=== PATIENT | female | born 1940 | race Two or more races ===

== ENCOUNTER 2017-08-15 17:51 | Inpatient (IN) | payer OTHER, MEDICAID ==
[~2017-08-15] VITALS: Ht 162.6 cm; Wt 98.9 kg
--- NOTE | 2017-08-15 18:10 | NUR ---
BB DAUGHTER FOR PSYCH EVAL; AGITATION, COMBATIVE, STRIKING OUT STAFF. NOTED CALM AND DIRECTABLE. VSS. SEEN BY PA FOR EVAL. SAFETY AND COMFORT MEASURES PROVIDED. WILL MONITOR.
--- NOTE | 2017-08-15 18:40 | NUR ---
RONDA MONSALVE AT FOR EVAL.
[2017-08-15 18:50] LABS: BASOPHILS % (AUTO) 0.2 % (0.0-2.0); EOSINOPHILS # (AUTO) 0.3 /CMM (0.0-0.7); EOSINOPHILS % (AUTO) 3.5 % (0.0-6.0); HEMATOCRIT 39 % (33-45); HEMOGLOBIN 13.4 g/dL (11.5-14.8); LYMPHOCYTES # (AUTO) 2.8 /CMM (0.8-4.8); LYMPHOCYTES % (AUTO) 29.4 % (20.0-44.0); MEAN CORPUSCULAR HEMOGLOBIN 31 PG (26.0-33.0); MEAN CORPUSCULAR HGB CONC 34 g/dl (31.0-36.0); MEAN CORPUSCULAR VOLUME 92 fL (82-100); MONOCYTES # (AUTO) 0.5 /CMM (0.1-1.30); MONOCYTES % (AUTO) 5.1 % (2.0-12.0); NEUTROPHILS % (AUTO) 61.8 % (43.0-81.0); PLATELET COUNT (AUTO) 338 /CMM (150-450); RED BLOOD CELL COUNT(AUTO) 4.27 MIL/uL (4.0-5.2); WHITE BLOOD COUNT (AUTO) 9.6 K/uL (4.3-11.0)
[2017-08-15 19:04] LABS: CALCIUM, SERUM 9.5 mg/dL (8.5-10.1); CARBON DIOXIDE 29 mmol/L (21-32); CHLORIDE 102 mmol/L (98-107); CREATININE 0.8 mg/dL (0.6-1.3); GLUCOSE 107 mg/dL (74-106); POTASSIUM 4.6 mmol/L (3.5-5.1); SODIUM SERUM 137 mmol/L (136-145); UREA NITROGEN, BLOOD 23 mg/dL (7-18)
[2017-08-15 19:19] LABS: ALANINE AMINOTRANSFERASE 20 U/L (12-78); ALBUMIN 2.9 g/dL (3.4-5.0); ALCOHOL, BLOOD < 3 mg/dL (0-0); ALKALINE PHOSPHATASE 115 U/L (46-116); ASPARTATE AMINOTRANSFERASE 21 U/L (15-37); BILIRUBIN,DIRECT 0.1 mg/dL (0.0-0.2); BILIRUBIN,TOTAL 0.3 mg/dL (0.2-1.0); TOTAL PROTEIN, SERUM 6.9 g/dL (6.4-8.2)
[2017-08-15 19:22] LABS: SALICYLATE 0.8 mg/dL (2.8-20.0)
[2017-08-15 19:23] LABS: ACETAMINOPHEN 0 ug/ml (10-30)
[2017-08-15 19:52] LABS: APPEARANCE,URINE Clear (CLEAR); BILIRUBIN,URINE Negative (NEGATIVE); BLOOD, URINE Negative Ery/uL (NEGATIVE); COLOR,URINE Yellow (YELLOW); KETONES,URINE Trace (NEGATIVE); LEUKOCYTE ESTERASE ,URINE Small (NEGATIVE); NITRITE, URINE Positive (NEGATIVE); PROTEIN,URINE Negative (NEGATIVE); UGLUCOSE Negative (NEGATIVE); UROBILINOGEN,URINE 0.2 EU/dL (0.2)
[2017-08-15 20:02] LABS: RBC,URINE 0-2 /HPF (0-2)
[2017-08-15 20:03] LABS: BACTERIA,URINE Moderate /HPF (None Seen); SQUAMOUS EPITHELIAL CELL,UR Moderate /HPF (None Seen)
[2017-08-15] MEDS ORDERED: CEFTRIAXONE 1 G VIAL IM STA (20:06)
[2017-08-15] MEDS ORDERED: CEFTRIAXONE 1 G VIAL ONE (20:23)
[2017-08-15] MEDS ORDERED: LIDOCAINE /MPF 1% VIAL 5 ML VIAL ONE (20:24)
--- NOTE | 2017-08-15 21:00 | NUR ---
ADMITTED A 76 Y/O FEMALE FROM [facility], ON 5150 HOLD GRAVELY DISABLE AND DANGER TO OTHERS. BASED ON HOLD, PATIENT IS COMBATIVE, AGGRESSIVE TOWARD CAREGIVER, STRIKING OUT STAFF AT THE FACILITY AND BITE HERSELF. PATIENT HAS ADMITTING DX OF PSYCHOSIS AND MEDICAL DX. OF DEMENTIA, HYPERTENSION, OSTEOARTHRITIS, HYPOTHYROIDISM AND CHRONIC KIDNEY DISEASE. UPON FACE TO FACE EVALUATION, PATIENT APPEARED ALERT AND ORIENTED X 1, CONFUSED, DISORGANIZED AND GUARDED. AFTER EXPLANATION AND REDIRECTION, PATIENT CALMED DOWN AND BECAME COOPERATIVE,. PATIENT UNABLE TO SIGN PAPER WORKS, FULL CODE AND ALLERGY TO LACTASE, MILK, SITAGLIPTIN AND TETRACYCLINE. PATIENT HAS NO SOB, NO ACUTE DISTRESS, BREATHING EVEN AND UNLABORED, NO S/S OF PAIN AND DISCOMFORT. HEAD TO TOES ASSESSMENT DONE. MULTIPLE BRUISES NOTED. PICTURE TAKEN. ALL BELONGINGS INSPECTED FOR CONTRABAND CHECKING. NOTIFIED DR. ESQUIVEL AND THANIA NOLEN TO RECONCILE THE MEDICATION. MARCELLUS DAUGHTER NOTIFIED OF THE ADMISSION. KEPT CLEAN, DRY AND COMFORTABLE, WILL CONTINUE TO MONITOR [id number] FOR SAFETY
[2017-08-15] MEDS ORDERED: MAGNESIUM HYDROXIDE 30 ML UDC PO PRN (21:30)
[2017-08-15] MEDS ORDERED: ACETAMINOPHEN 325 MG TABLET PO PRN (21:30)
[2017-08-15] MEDS ORDERED: MAG HYDROX/AL HYDROX/SIMETH 30 ML UDC PO PRN (21:30)
[2017-08-15] MEDS ORDERED: SENN8.8S11 PO (22:59)
[2017-08-15] MEDS ORDERED: ATEN50TA PO (22:59)
[2017-08-15] MEDS ORDERED: PIOG45TA PO (22:59)
[2017-08-15] MEDS ORDERED: DOCU-170 PO (22:59)
[2017-08-15] MEDS ORDERED: DICL100G3 TP (22:59)
[2017-08-15] MEDS ORDERED: QUET50TA PO (22:59)
[2017-08-15] MEDS ORDERED: GLIP10TA11 PO (22:59)
[2017-08-15] MEDS ORDERED: QUET25TA PO (22:59)
[2017-08-15] MEDS ORDERED: MULT1TAB73 PO (22:59)
[2017-08-15] MEDS ORDERED: OXCA300T4 PO (22:59)
[2017-08-15] MEDS ORDERED: CALC-838 PO (22:59)
[2017-08-15] MEDS ORDERED: LEVO50TA8 PO (22:59)
[2017-08-15] MEDS ORDERED: LEVO25TA9 PO (22:59)
[2017-08-15] MEDS ORDERED: CLOP75TA2 PO (22:59)
[2017-08-15] MEDS ORDERED: QUET100T PO (22:59)
[2017-08-15] MEDS ORDERED: LEVO200T8 PO (22:59)
[2017-08-15 23:23] VITALS: BP 151/76
[2017-08-16] MEDS ORDERED: DEXTROSE 50%-WATER 50 ML DISP.SYRIN IV PRN
[2017-08-16] MEDS ORDERED: Medication Not On Formulary EA (Pioglitazone Hcl (Actos) 45 MG) PO SCH (06:00)
[2017-08-16 07:49] LABS: CREATININE 0.6 mg/dL (0.6-1.3)
[2017-08-16 07:57] LABS: CHOLESTEROL 131 mg/dL (<200); HDL CHOLESTEROL 39 mg/dL (40-60); LDL 67 mg/dL (0-99); TRIGLYCERIDES 143 mg/dL (30-150)
[2017-08-16 08:00] VITALS: BP 133/66
--- NOTE | 2017-08-16 09:16 | NUR ---
[id number]: BLOOD SUGAR IS 226 MG/DL AND GAVE NO INSULIN COVERAGE BECAUSE PT REFUSED
[2017-08-16] MEDS: BLOOD SUGAR DIAGNOSTIC 1 EACH STRIP IN SCH ×4 (09:22→22:48)
[2017-08-16] MEDS ORDERED: LINAGLIPTIN 5 MG TABLET PO SCH (09:30)
[2017-08-16] MEDS: SENNOSIDES 8.6 MG TABLET PO PRN (10:37)
[2017-08-16] MEDS: DOCUSATE SODIUM 100 MG CAPSULE PO PRN (10:37)
[2017-08-16] MEDS: CLOPIDOGREL BISULFATE 75 MG TABLET PO SCH (10:37)
[2017-08-16] MEDS: MULTIVITAMINS,THERAGRAN 1 UDTAB TABLET PO SCH (10:37)
--- NOTE | 2017-08-16 10:37 | NUR ---
[id number]: GAVE SENOKOT 8.6 MG DUE TO CONSTIPATION AND WILL CONTINUE TO MONITOR FOR EFFECTIVENESS OF MEDICATION
--- NOTE | 2017-08-16 10:37 | NUR ---
[id number]-DQ-[id number]: GAVE COLACE 100MG PO DUE TO CONSTIPATION UPON PT REQUEST AND WILL CONTINUE TO MONITOR FOR EFFECTIVENESS OF MEDICATION
[2017-08-16] MEDS: CALCIUM CARB 600MG /VIT D 1 EACH TABLET PO SCH ×2 (10:40→16:46)
[2017-08-16] MEDS: ATENOLOL 50 MG TABLET PO SCH (10:40)
[2017-08-16] MEDS: LEVOTHYROXINE SODIUM 25 MCG TABLET PO SCH (11:43)
[2017-08-16] MEDS: LEVOTHYROXINE SODIUM 50 MCG TABLET PO SCH (11:43)
[2017-08-16] MEDS: LEVOTHYROXINE SODIUM 100 MCG TABLET PO SCH (11:43)
[2017-08-16] MEDS: INSULIN REGULAR, HUMAN 100 UNIT/ML 3 ML VIAL SQ PRN ×4 (12:29→21:57)
--- NOTE | 2017-08-16 12:32 | NUR ---
MBC-BH-ATPNM: BLOOD SUGAR IS 243 MG/DL AND GAVE 4 UNITS OF REGULAR INSULIN
--- NOTE | 2017-08-16 12:32 | NUR ---
[id number]-[id number]: BLOOD SUGAR IS 243 MG/DL AND GAVE 4 UNITS OF REGULAR INSULIN Addendum: 08/16/17 at 1344 by PARDEEP WRIGHT RN DOUBLE ENTRY
[2017-08-16] MEDS: glipiZIDE 10 MG TABLET PO SCH ×2 (12:35→16:46)
[2017-08-16] MEDS: DIVALPROEX SODIUM 125 MG CAP.SPRINK PO SCH ×2 (13:17→16:46)
[2017-08-16] MEDS: BENZTROPINE MESYLATE (1 MG) 1 MG TABLET PO SCH ×2 (13:17→16:46)
[2017-08-16] MEDS: risperiDONE-M 0.5 MG TAB.RAPDIS PO SCH ×2 (13:18→16:49)
--- NOTE | 2017-08-16 15:30 | NUR ---
[id number]: NOTIFIED VP CARDIOVASCULAR HÉCTOR CAZARES ABOUT LAB RESULTS ON 08/15/17: URINE WBC= 3-5. NO NEW ORDERS GIVEN AT THIS TIME
[2017-08-16 15:39] VITALS: BP 145/62
--- NOTE | 2017-08-16 16:32 | NUR ---
Initial Discharge Plan According to facesheet, patient lives at [address] [place] [address] / [phone]. hot stick worker will contact pt's daughters Lilliana Arvizus [phone] and Dariana Babcock [phone] / [phone]. SW will also contact the [facility] so that they may assist in arranging placement for patient. SW will follow up with MD and will help to arrange a safe and proper discharge.
--- NOTE | 2017-08-16 16:51 | NUR ---
[id number]: BLOOD SUGAR IS 201 MG/DL AND GAVE 4 UNITS OF REGULAR INSULIN
[2017-08-16 20:37] VITALS: BP 112/53
[2017-08-17 08:00] VITALS: BP 140/69
[2017-08-17] MEDS: BLOOD SUGAR DIAGNOSTIC 1 EACH STRIP IN SCH ×4 (08:00→22:21)
--- NOTE | 2017-08-17 08:00 | NUR ---
PATIENT BLOOD SUGAR WAS 94MG/DL,NO COVERAGE GIVEN.
[2017-08-17] MEDS: LEVOTHYROXINE SODIUM 100 MCG TABLET PO SCH (08:38)
[2017-08-17] MEDS: LEVOTHYROXINE SODIUM 50 MCG TABLET PO SCH (08:39)
[2017-08-17] MEDS: CALCIUM CARB 600MG /VIT D 1 EACH TABLET PO SCH ×2 (08:39→17:29)
[2017-08-17] MEDS: PIOGLITAZONE HCL 15 MG TABLET PO SCH (08:39)
[2017-08-17] MEDS: MULTIVITAMINS,THERAGRAN 1 UDTAB TABLET PO SCH (08:39)
[2017-08-17] MEDS: DIVALPROEX SODIUM 125 MG CAP.SPRINK PO SCH ×3 (08:39→17:29)
[2017-08-17] MEDS: LEVOTHYROXINE SODIUM 25 MCG TABLET PO SCH (08:39)
[2017-08-17] MEDS: BENZTROPINE MESYLATE (1 MG) 1 MG TABLET PO SCH ×3 (08:40→17:29)
[2017-08-17] MEDS: glipiZIDE 10 MG TABLET PO SCH ×2 (08:40→17:29)
[2017-08-17] MEDS: CLOPIDOGREL BISULFATE 75 MG TABLET PO SCH (08:40)
[2017-08-17] MEDS: ATENOLOL 50 MG TABLET PO SCH (08:41)
[2017-08-17] MEDS: risperiDONE-M 0.5 MG TAB.RAPDIS PO SCH ×3 (08:44→17:29)
--- NOTE | 2017-08-17 12:51 | NUR ---
DR. ESQUIVEL SEEN THE PATIENT WITH VERBAL ORDER OF EKG FOR THE PATIENT,NOTED AND CARRIED OUT.
[2017-08-17] MEDS: INSULIN REGULAR, HUMAN 100 UNIT/ML 3 ML VIAL SQ PRN ×2 (13:05→22:00)
--- NOTE | 2017-08-17 13:07 | NUR ---
Patient blood sugar was 221mg/dl, 4units of R insulin given as ordered.
[2017-08-17 16:34] VITALS: BP 105/58
--- NOTE | 2017-08-17 17:38 | NUR ---
RN-NOTES PATIENT BLOOD SUGAR WAS 106 MG/DL,NO COVERAGE GIVEN.
[2017-08-17 20:21] VITALS: BP 101/52
[2017-08-18 08:00] VITALS: BP 130/60
--- NOTE | 2017-08-18 08:00 | NUR ---
[id number]: BLOOD SUGAR IS 83 MG/DL AND NO INSULIN COVERAGE REQUIRED AT THIS TIME
[2017-08-18] MEDS: BLOOD SUGAR DIAGNOSTIC 1 EACH STRIP IN SCH ×4 (08:06→21:59)
[2017-08-18] MEDS: LEVOTHYROXINE SODIUM 25 MCG TABLET PO SCH (08:07)
[2017-08-18] MEDS: LEVOTHYROXINE SODIUM 50 MCG TABLET PO SCH (08:07)
[2017-08-18] MEDS: CALCIUM CARB 600MG /VIT D 1 EACH TABLET PO SCH ×2 (08:08→16:30)
[2017-08-18] MEDS: DIVALPROEX SODIUM 125 MG CAP.SPRINK PO SCH ×3 (08:08→16:30)
[2017-08-18] MEDS: BENZTROPINE MESYLATE (1 MG) 1 MG TABLET PO SCH ×3 (08:08→16:30)
[2017-08-18] MEDS: CLOPIDOGREL BISULFATE 75 MG TABLET PO SCH (08:08)
[2017-08-18] MEDS: glipiZIDE 10 MG TABLET PO SCH ×2 (08:08→16:30)
[2017-08-18] MEDS: ATENOLOL 50 MG TABLET PO SCH (08:09)
[2017-08-18] MEDS: PIOGLITAZONE HCL 15 MG TABLET PO SCH (08:12)
[2017-08-18] MEDS: LEVOTHYROXINE SODIUM 100 MCG TABLET PO SCH (08:12)
[2017-08-18] MEDS: MULTIVITAMINS,THERAGRAN 1 UDTAB TABLET PO SCH (08:33)
[2017-08-18] MEDS: risperiDONE-M 0.5 MG TAB.RAPDIS PO SCH ×3 (08:33→16:30)
--- NOTE | 2017-08-18 12:00 | NUR ---
LAH-UY-[id number]: BLOOD SUGAR IS 112 MG/DL AND NO INSULIN REQUIRED AT THIS TIME
[2017-08-18 13:25] LABS: APPEARANCE,URINE CLEAR (CLEAR); BILIRUBIN,URINE NEGATIVE (NEGATIVE); BLOOD, URINE NEGATIVE Ery/uL (NEGATIVE); COLOR,URINE YELLOW (YELLOW); KETONES,URINE NEGATIVE (NEGATIVE); LEUKOCYTE ESTERASE ,URINE NEGATIVE (NEGATIVE); NITRITE, URINE NEGATIVE (NEGATIVE); PH,URINE 6.5 (5.0-8.0); PROTEIN,URINE NEGATIVE (NEGATIVE); UGLUCOSE NEGATIVE (NEGATIVE); UROBILINOGEN,URINE 0.2 EU/dL (0.2)
--- NOTE | 2017-08-18 13:55 | NUR ---
[id number]: NOTIFIED PURCHASING SUPERVISOR HÉCTOR CAZARES ABOUT LAB RESULTS ON 08/16/17: UR SPECIFIC GRAVITY= <1.005. NO NEW ORDERS GIVEN AT THIS TIME
[2017-08-18 15:43] VITALS: BP 103/63
--- NOTE | 2017-08-18 16:55 | NUR ---
MTR-JA-GXFCM: BLOOD SUGAR IS 125 MG /DL AND NO INSULIN REQUIRED AT THIS TIME
[2017-08-18 20:00] VITALS: BP 120/89
[2017-08-18] MEDS: LORAZEPAM 0.5 MG TABLET PO PRN (21:40)
--- NOTE | 2017-08-18 21:40 | NUR ---
GPS RN NOTES: PATIENT A/OX2, PATIENT NOTED TO BE ANXIOUS. V/S ARE STABLE. ATIVAN 0.5MG GIVEN ORDERED. WILL CONTINUE TO MONITOR [id number] FOR SAFETY AND BEHAVIOR.
[2017-08-18] MEDS ORDERED: risperiDONE 0.25 MG TABLET PO SCH (22:00)
[2017-08-18] MEDS: INSULIN REGULAR, HUMAN 100 UNIT/ML 3 ML VIAL SQ PRN (22:04)
[2017-08-19 06:42] LABS: BASOPHILS % (AUTO) 0.2 % (0.0-2.0); EOSINOPHILS # (AUTO) 0.2 /CMM (0.0-0.7); HEMATOCRIT 37 % (33-45); HEMOGLOBIN 12.6 g/dL (11.5-14.8); LYMPHOCYTES # (AUTO) 2.5 /CMM (0.8-4.8); MEAN CORPUSCULAR HEMOGLOBIN 31 PG (26.0-33.0); MEAN CORPUSCULAR HGB CONC 34 g/dl (31.0-36.0); MEAN CORPUSCULAR VOLUME 93 fL (82-100); MONOCYTES # (AUTO) 0.6 /CMM (0.1-1.30); MONOCYTES % (AUTO) 5.2 % (2.0-12.0); NEUTROPHILS % (AUTO) 70.6 % (43.0-81.0); PLATELET COUNT (AUTO) 323 /CMM (150-450); RDW COEFFICIENT OF VARIATION 15.3 (11.5-15.0); WHITE BLOOD COUNT (AUTO) 11.3 K/uL (4.3-11.0)
[2017-08-19 07:00] LABS: ALANINE AMINOTRANSFERASE 27 U/L (12-78); ALBUMIN 2.8 g/dL (3.4-5.0); ALKALINE PHOSPHATASE 103 U/L (46-116); ASPARTATE AMINOTRANSFERASE 28 U/L (15-37); BILIRUBIN,TOTAL 0.3 mg/dL (0.2-1.0); CALCIUM, SERUM 9.8 mg/dL (8.5-10.1); CARBON DIOXIDE 27 mmol/L (21-32); CHLORIDE 105 mmol/L (98-107); CREATININE 0.7 mg/dL (0.6-1.3); GLUCOSE 102 mg/dL (74-106); POTASSIUM 4.2 mmol/L (3.5-5.1); SODIUM SERUM 140 mmol/L (136-145); TOTAL PROTEIN, SERUM 6.8 g/dL (6.4-8.2); UREA NITROGEN, BLOOD 26 mg/dL (7-18)
[2017-08-19 07:15] LABS: VALPROIC ACID 29 ug/mL (50-100)
[2017-08-19] MEDS: LEVOTHYROXINE SODIUM 100 MCG TABLET PO SCH ×2 (07:30→08:32)
[2017-08-19] MEDS: LEVOTHYROXINE SODIUM 25 MCG TABLET PO SCH ×2 (07:30→08:32)
[2017-08-19] MEDS: LEVOTHYROXINE SODIUM 50 MCG TABLET PO SCH ×2 (07:30→08:33)
[2017-08-19] MEDS: BLOOD SUGAR DIAGNOSTIC 1 EACH STRIP IN SCH ×4 (07:43→21:57)
[2017-08-19 08:02] VITALS: BP 104/44
[2017-08-19] MEDS: MULTIVITAMINS,THERAGRAN 1 UDTAB TABLET PO SCH ×2 (08:31→09:00)
[2017-08-19] MEDS: risperiDONE-M 0.5 MG TAB.RAPDIS PO SCH ×2 (08:31→21:15)
[2017-08-19] MEDS: CLOPIDOGREL BISULFATE 75 MG TABLET PO SCH ×2 (08:31→09:00)
[2017-08-19] MEDS: PIOGLITAZONE HCL 15 MG TABLET PO SCH ×2 (08:32→09:00)
[2017-08-19] MEDS: DIVALPROEX SODIUM 125 MG CAP.SPRINK PO SCH ×3 (08:32→17:00)
[2017-08-19] MEDS: DOCUSATE SODIUM 100 MG CAPSULE PO PRN (08:32)
[2017-08-19] MEDS: CALCIUM CARB 600MG /VIT D 1 EACH TABLET PO SCH ×3 (08:32→17:00)
[2017-08-19] MEDS: BENZTROPINE MESYLATE (1 MG) 1 MG TABLET PO SCH ×4 (08:33→17:00)
[2017-08-19] MEDS: glipiZIDE 10 MG TABLET PO SCH ×3 (08:33→17:00)
[2017-08-19] MEDS: ATENOLOL 50 MG TABLET PO SCH (08:33)
[2017-08-19] MEDS: SENNOSIDES 8.6 MG TABLET PO PRN (08:33)
--- NOTE | 2017-08-19 11:00 | NUR ---
GPS/RN PT REFUSED ALL AM MEDS. MULTIPLE ATTEMPTS WERE MADE BY THE HOUSING COUNSELOR OF THE NOTE, BY CHARGE NURSE CHRIS GOYAL AND BY DR ESQUIVEL PERSONALLY.
--- NOTE | 2017-08-19 12:03 | NUR ---
GPS/RN PT REFUSED ACCUCHECK OFFERED X3.
--- NOTE | 2017-08-19 12:38 | NUR ---
Discharge Planning: LUMA called James [nursing coordinator] from [facility] at [phone] to discuss placement for patient. James stated that he will discuss with the social workers at the organization and will fax out inquiries for patient. James stated that he will be in touch soon. SW to follow up.
--- NOTE | 2017-08-19 12:45 | NUR ---
Family Update: SW called pt's daughter Lilliana Pollack [phone] to discuss plan for discharge. Lilliana was aware that [facility] was assisting in finding placement. She was aware that a SNF placement is an option, as well as a board and care.
--- NOTE | 2017-08-19 12:55 | NUR ---
GPS/RN PT REFUSED PT EVAL TODAY
--- NOTE | 2017-08-19 13:05 | NUR ---
Discharge Planning: SW received a call from james [instructional technology coordinator] from [facility] at [phone]. James stated that the agency had already been working on placement for patient and that a board and care called [facility] was looking to accept patient. James stated that pt's daughters were aware of this. James asked LUMA to fax over progress notes, which SW did to fax number [phone] [Attn: James].
[2017-08-19 16:00] VITALS: BP 139/61
--- NOTE | 2017-08-19 17:20 | NUR ---
GPS/RN PT REFUSED MEDS FOR 1700 AND ACCUCHECK WELL.
[2017-08-19 20:08] VITALS: BP 138/65
[2017-08-19] MEDS: INSULIN REGULAR, HUMAN 100 UNIT/ML 3 ML VIAL SQ PRN (22:01)
[2017-08-20] MEDS: LORAZEPAM 0.5 MG TABLET PO PRN (01:55)
[2017-08-20] MEDS: LEVOTHYROXINE SODIUM 25 MCG TABLET PO SCH (07:30)
[2017-08-20] MEDS: LEVOTHYROXINE SODIUM 100 MCG TABLET PO SCH (07:30)
[2017-08-20] MEDS: LEVOTHYROXINE SODIUM 50 MCG TABLET PO SCH (07:30)
[2017-08-20 08:00] VITALS: BP 141/83
[2017-08-20] MEDS: BLOOD SUGAR DIAGNOSTIC 1 EACH STRIP IN SCH ×4 (08:21→21:06)
[2017-08-20] MEDS: CALCIUM CARB 600MG /VIT D 1 EACH TABLET PO SCH ×2 (09:00→17:55)
[2017-08-20] MEDS: glipiZIDE 10 MG TABLET PO SCH ×2 (09:00→17:54)
[2017-08-20] MEDS: ATENOLOL 50 MG TABLET PO SCH (09:00)
[2017-08-20] MEDS: risperiDONE-M 0.5 MG TAB.RAPDIS PO SCH ×2 (09:00→21:05)
[2017-08-20] MEDS: PIOGLITAZONE HCL 15 MG TABLET PO SCH (09:00)
[2017-08-20] MEDS: CLOPIDOGREL BISULFATE 75 MG TABLET PO SCH (09:00)
[2017-08-20] MEDS: BENZTROPINE MESYLATE (1 MG) 1 MG TABLET PO SCH ×3 (09:00→17:55)
[2017-08-20] MEDS: MULTIVITAMINS,THERAGRAN 1 UDTAB TABLET PO SCH (09:00)
[2017-08-20] MEDS: DIVALPROEX SODIUM 125 MG CAP.SPRINK PO SCH ×3 (09:00→17:55)
--- NOTE | 2017-08-20 10:00 | NUR ---
GPS/RN PT REFUSED AM MEDS OFFERED X3. DR ESQUIVEL MADE AWARE
--- NOTE | 2017-08-20 13:14 | NUR ---
GPS/RN PT TOOK THE 1300 MEDS WITH THE HELP OF HER DAUGHTER. STILL , THE PT IS VERY SUSPICIOUS AND PARANOID AND ACCUSED DAUGHTER THAT SHE IS NOT TRUSTWORTHY.
[2017-08-20 16:00] VITALS: BP 129/51
[2017-08-20 20:00] VITALS: BP 143/61
--- NOTE | 2017-08-20 21:07 | NUR ---
MS/RN NOTES PATIENT IN BED, ALERT ET ORIENTEDX1. NO ACUTE DISTRESS NOTED. TOOK PO MEDS AT THIS TIME. REFUSED ACCU CHECK . NO COMPLAINTS OF ANY PAIN OR DISCOMFORT. WILL CONTINUE TO MONITOR.
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
[2017-08-21] MEDS: BLOOD SUGAR DIAGNOSTIC 1 EACH STRIP IN SCH ×4 (07:30→21:46)
[2017-08-21 08:36] VITALS: BP 140/79
[2017-08-21] MEDS: LEVOTHYROXINE SODIUM 25 MCG TABLET PO SCH (08:49)
[2017-08-21] MEDS: CALCIUM CARB 600MG /VIT D 1 EACH TABLET PO SCH ×2 (08:49→16:53)
[2017-08-21] MEDS: LEVOTHYROXINE SODIUM 100 MCG TABLET PO SCH (08:49)
[2017-08-21] MEDS: PIOGLITAZONE HCL 15 MG TABLET PO SCH (08:50)
[2017-08-21] MEDS: risperiDONE-M 0.5 MG TAB.RAPDIS PO SCH ×2 (08:50→21:46)
[2017-08-21] MEDS: ATENOLOL 25 MG TABLET PO SCH (08:50)
[2017-08-21] MEDS: glipiZIDE 10 MG TABLET PO SCH ×2 (08:50→17:00)
[2017-08-21] MEDS: MULTIVITAMINS,THERAGRAN 1 UDTAB TABLET PO SCH (08:50)
[2017-08-21] MEDS: DIVALPROEX SODIUM 125 MG CAP.SPRINK PO SCH ×3 (08:50→17:05)
[2017-08-21] MEDS: BENZTROPINE MESYLATE (1 MG) 1 MG TABLET PO SCH ×3 (08:50→16:54)
[2017-08-21] MEDS: CLOPIDOGREL BISULFATE 75 MG TABLET PO SCH (08:50)
[2017-08-21] MEDS: LEVOTHYROXINE SODIUM 50 MCG TABLET PO SCH (08:50)
--- NOTE | 2017-08-21 12:14 | NUR ---
BLOOD GLUCOSE 70. GAVE PT ORANGE JUICE. NO S/S OF HYPOGLYCEMIA NOTED. NO INSULIN ADMINISTERED
[2017-08-21 16:29] VITALS: BP 124/55
--- NOTE | 2017-08-21 17:08 | NUR ---
GLIBIZIED HELD DUE TO BLOOD SUGAR 47. MADE AWARE. TWO BOXES OF ORANGE JUICE WITH 5 SUGARS GIVEN. WILL RECHECK IN 30 MINS.
--- NOTE | 2017-08-21 17:47 | NUR ---
RECHECKED BG. BG IS 75. WITHIN NORMAL RANGE.
[2017-08-21 20:39] VITALS: BP 144/81
[2017-08-22 08:00] VITALS: BP 144/63
[2017-08-22] MEDS: glipiZIDE 10 MG TABLET PO SCH ×2 (09:00→16:34)
[2017-08-22] MEDS: PIOGLITAZONE HCL 15 MG TABLET PO SCH (09:16)
[2017-08-22] MEDS: LEVOTHYROXINE SODIUM 25 MCG TABLET PO SCH (09:17)
[2017-08-22] MEDS: DIVALPROEX SODIUM 125 MG CAP.SPRINK PO SCH ×4 (09:18→16:34)
[2017-08-22] MEDS: CALCIUM CARB 600MG /VIT D 1 EACH TABLET PO SCH ×3 (09:18→16:34)
[2017-08-22] MEDS: risperiDONE-M 0.5 MG TAB.RAPDIS PO SCH ×2 (09:18→21:26)
[2017-08-22] MEDS: LEVOTHYROXINE SODIUM 100 MCG TABLET PO SCH (09:18)
[2017-08-22] MEDS: CLOPIDOGREL BISULFATE 75 MG TABLET PO SCH (09:18)
[2017-08-22] MEDS: SENNOSIDES 8.6 MG TABLET PO PRN (09:18)
[2017-08-22] MEDS: ATENOLOL 25 MG TABLET PO SCH (09:18)
[2017-08-22] MEDS: LEVOTHYROXINE SODIUM 50 MCG TABLET PO SCH (09:19)
[2017-08-22] MEDS: BENZTROPINE MESYLATE (1 MG) 1 MG TABLET PO SCH ×4 (09:19→16:34)
[2017-08-22] MEDS: MULTIVITAMINS,THERAGRAN 1 UDTAB TABLET PO SCH (09:19)
[2017-08-22] MEDS: DOCUSATE SODIUM 100 MG CAPSULE PO PRN (09:19)
[2017-08-22] MEDS: BLOOD SUGAR DIAGNOSTIC 1 EACH STRIP IN SCH ×4 (09:30→21:30)
--- NOTE | 2017-08-22 14:17 | NUR ---
Discharge Planning: [facility] sent Joaquina from [facility] [address] [facility] [address] / [phone] / fax number [phone] to assess patient. Joaquina stated that she will follow up with [facility] and with later on.
[2017-08-22 16:00] VITALS: BP 120/50
[2017-08-22] MEDS: INSULIN REGULAR, HUMAN 100 UNIT/ML 3 ML VIAL SQ PRN ×2 (17:36→22:10)
--- NOTE | 2017-08-22 17:56 | NUR ---
GPS/RN BS 183, ADMINISTERED 3 UNITS REGULAR INSULIN, WILL CONTINUE TO MONITOR.
--- NOTE | 2017-08-22 17:57 | NUR ---
GPS/RN PATIENT REFUSED ALL 1700 MEDICATION X 3, EXPLAINED RISKS AND BENEFITS, WILL CONTINUE TO ENCOURAGE TO COMPLY WITH MD REGIMEN.
[2017-08-22 20:16] VITALS: BP 124/61
[2017-08-23] MEDS: BLOOD SUGAR DIAGNOSTIC 1 EACH STRIP IN SCH ×4 (07:30→21:51)
[2017-08-23 08:29] VITALS: BP 130/67
[2017-08-23] MEDS: LEVOTHYROXINE SODIUM 50 MCG TABLET PO SCH (08:43)
[2017-08-23] MEDS: ATENOLOL 25 MG TABLET PO SCH (08:44)
[2017-08-23] MEDS: CLOPIDOGREL BISULFATE 75 MG TABLET PO SCH (08:44)
[2017-08-23] MEDS: LEVOTHYROXINE SODIUM 25 MCG TABLET PO SCH (08:45)
[2017-08-23] MEDS: PIOGLITAZONE HCL 15 MG TABLET PO SCH (08:45)
[2017-08-23] MEDS: DIVALPROEX SODIUM 125 MG CAP.SPRINK PO SCH ×3 (08:46→17:00)
[2017-08-23] MEDS: glipiZIDE 10 MG TABLET PO SCH ×2 (08:46→17:00)
[2017-08-23] MEDS: MULTIVITAMINS,THERAGRAN 1 UDTAB TABLET PO SCH (08:46)
[2017-08-23] MEDS: BENZTROPINE MESYLATE (1 MG) 1 MG TABLET PO SCH ×3 (08:47→17:00)
[2017-08-23] MEDS: LEVOTHYROXINE SODIUM 100 MCG TABLET PO SCH (08:47)
[2017-08-23] MEDS: risperiDONE-M 0.5 MG TAB.RAPDIS PO SCH ×2 (08:48→21:00)
[2017-08-23] MEDS: CALCIUM CARB 600MG /VIT D 1 EACH TABLET PO SCH ×2 (08:49→17:00)
[2017-08-23 16:00] VITALS: BP 127/60
--- NOTE | 2017-08-23 17:06 | NUR ---
Discharge Planning: LUMA faxed over progress notes to [facility] at [phone]/ fax number [phone] [Attn: James]. James stated that [facility] is finding placement for pt.
[2017-08-23] MEDS ORDERED: OLANZAPINE 10 MG VIAL IM PRN (20:00)
[2017-08-23 20:51] VITALS: BP 124/58
[2017-08-24] MEDS: LEVOTHYROXINE SODIUM 100 MCG TABLET PO SCH (07:30)
[2017-08-24] MEDS: LEVOTHYROXINE SODIUM 50 MCG TABLET PO SCH (07:30)
[2017-08-24] MEDS: LEVOTHYROXINE SODIUM 25 MCG TABLET PO SCH (07:30)
[2017-08-24] MEDS: BLOOD SUGAR DIAGNOSTIC 1 EACH STRIP IN SCH ×4 (07:30→22:00)
--- NOTE | 2017-08-24 07:30 | NUR ---
RN NOTES Patient in bed, No acute distress noted. resting, not in any distress. see nursing flowsheet for skin issues, bed bound, appears calm at this time. will cont to monitor.
[2017-08-24 08:00] VITALS: BP 104/73
[2017-08-24] MEDS: PIOGLITAZONE HCL 15 MG TABLET PO SCH (08:52)
[2017-08-24] MEDS: BENZTROPINE MESYLATE (1 MG) 1 MG TABLET PO SCH ×3 (08:53→16:40)
[2017-08-24] MEDS: CALCIUM CARB 600MG /VIT D 1 EACH TABLET PO SCH ×2 (08:53→16:40)
[2017-08-24] MEDS: glipiZIDE 10 MG TABLET PO SCH ×2 (08:54→16:40)
[2017-08-24] MEDS: DIVALPROEX SODIUM 125 MG CAP.SPRINK PO SCH ×3 (08:54→16:40)
[2017-08-24] MEDS: LORAZEPAM 0.5 MG TABLET PO PRN (08:55)
[2017-08-24] MEDS: risperiDONE-M 0.5 MG TAB.RAPDIS PO SCH ×2 (08:55→21:34)
[2017-08-24] MEDS: CLOPIDOGREL BISULFATE 75 MG TABLET PO SCH (08:56)
[2017-08-24] MEDS: ATENOLOL 25 MG TABLET PO SCH (08:56)
[2017-08-24] MEDS: MULTIVITAMINS,THERAGRAN 1 UDTAB TABLET PO SCH (08:59)
--- NOTE | 2017-08-24 09:30 | NUR ---
RN NOTES PT REFUSED ACCUCHECK THIS MORNING. RESFUSED SOME OF THE AM MEDICATIONS. ABLE TO TAKE RISPERDAL SCHEDULED.
--- NOTE | 2017-08-24 11:41 | NUR ---
RN NOTES ACCUCHECK. BS 120 MG/DL. NO INSULIN COVERAGE GIVEN.
[2017-08-24 16:00] VITALS: BP 99/55
--- NOTE | 2017-08-24 17:27 | NUR ---
RN NOTES PATIENT REFUSED ALL MEDS TRIED TO GIVE MILK OF MAGNESIA BUT PATIENT IS SPITTING IT OUT. REFUSE ACCUCHECK.
[2017-08-24 20:45] VITALS: BP 107/56
[2017-08-25 07:17] LABS: BASOPHILS % (AUTO) 0.3 % (0.0-2.0); EOSINOPHILS # (AUTO) 0.2 /CMM (0.0-0.7); EOSINOPHILS % (AUTO) 2.3 % (0.0-6.0); HEMATOCRIT 33 % (33-45); HEMOGLOBIN 11.5 g/dL (11.5-14.8); LYMPHOCYTES # (AUTO) 2.6 /CMM (0.8-4.8); LYMPHOCYTES % (AUTO) 36.4 % (20.0-44.0); MEAN CORPUSCULAR HEMOGLOBIN 32 PG (26.0-33.0); MEAN CORPUSCULAR HGB CONC 34 g/dl (31.0-36.0); MEAN CORPUSCULAR VOLUME 93 fL (82-100); MONOCYTES # (AUTO) 0.4 /CMM (0.1-1.30); MONOCYTES % (AUTO) 6.1 % (2.0-12.0); NEUTROPHILS % (AUTO) 54.9 % (43.0-81.0); PLATELET COUNT (AUTO) 260 /CMM (150-450); RDW COEFFICIENT OF VARIATION 15.2 (11.5-15.0); RED BLOOD CELL COUNT(AUTO) 3.57 MIL/uL (4.0-5.2); WHITE BLOOD COUNT (AUTO) 7.3 K/uL (4.3-11.0)
[2017-08-25 07:25] LABS: ALANINE AMINOTRANSFERASE 29 U/L (12-78); ALBUMIN 2.5 g/dL (3.4-5.0); ALKALINE PHOSPHATASE 91 U/L (46-116); ASPARTATE AMINOTRANSFERASE 29 U/L (15-37); BILIRUBIN,TOTAL 0.3 mg/dL (0.2-1.0); CALCIUM, SERUM 8.8 mg/dL (8.5-10.1); CARBON DIOXIDE 28 mmol/L (21-32); CHLORIDE 109 mmol/L (98-107); CREATININE 0.7 mg/dL (0.6-1.3); GLUCOSE 97 mg/dL (74-106); POTASSIUM 3.9 mmol/L (3.5-5.1); SODIUM SERUM 143 mmol/L (136-145); TOTAL PROTEIN, SERUM 6.1 g/dL (6.4-8.2); UREA NITROGEN, BLOOD 28 mg/dL (7-18)
[2017-08-25 07:31] LABS: VALPROIC ACID 22 ug/mL (50-100)
[2017-08-25] MEDS: BLOOD SUGAR DIAGNOSTIC 1 EACH STRIP IN SCH ×4 (08:43→21:34)
[2017-08-25] MEDS: ATENOLOL 25 MG TABLET PO SCH (09:00)
[2017-08-25] MEDS: DIVALPROEX SODIUM 125 MG CAP.SPRINK PO SCH ×5 (09:00→17:59)
[2017-08-25] MEDS: glipiZIDE 10 MG TABLET PO SCH ×2 (09:01→17:00)
[2017-08-25] MEDS: risperiDONE-M 0.5 MG TAB.RAPDIS PO SCH ×2 (09:01→21:33)
[2017-08-25] MEDS: CALCIUM CARB 600MG /VIT D 1 EACH TABLET PO SCH ×3 (09:01→17:59)
[2017-08-25] MEDS: PIOGLITAZONE HCL 15 MG TABLET PO SCH (09:01)
[2017-08-25] MEDS: MULTIVITAMINS,THERAGRAN 1 UDTAB TABLET PO SCH (09:01)
[2017-08-25] MEDS: BENZTROPINE MESYLATE (1 MG) 1 MG TABLET PO SCH ×4 (09:01→17:59)
[2017-08-25] MEDS: LEVOTHYROXINE SODIUM 25 MCG TABLET PO SCH (09:01)
[2017-08-25] MEDS: LEVOTHYROXINE SODIUM 100 MCG TABLET PO SCH (09:01)
[2017-08-25] MEDS: CLOPIDOGREL BISULFATE 75 MG TABLET PO SCH (09:01)
[2017-08-25] MEDS: LEVOTHYROXINE SODIUM 50 MCG TABLET PO SCH (09:02)
[2017-08-25 09:08] VITALS: BP 124/66
--- NOTE | 2017-08-25 11:56 | NUR ---
Discharge Planning: SW called called James [customer supply coordinator] from [facility] at [phone] and informed him that patient is ready to be assessed and that the psychiatrist is planning on discharging patient on Tuesday. James stated that he will send over [facility] board + care to assess patient and will call SW later to confirm the time/day of assessment.
--- NOTE | 2017-08-25 12:29 | NUR ---
rn notes CHECKED BS-39 MG/DL, ADMINISTERED ORANGE JUICE, AND LUNCH, PATIENT A/O X3, NO S/S OF HYPOGLYCEMIA, NOTIFIED Dr. BYNUM , NO NEW ORDERS, CONTINUED MONITORING.
[2017-08-25] MEDS ORDERED: INVEGA SUSTENNA 156 MG ONE (14:00)
[2017-08-25 16:00] VITALS: BP 129/61
[2017-08-25 20:00] VITALS: BP 127/56
[2017-08-25] MEDS: INSULIN REGULAR, HUMAN 100 UNIT/ML 3 ML VIAL SQ PRN (21:34)
--- NOTE | 2017-08-25 21:35 | NUR ---
GPS/WELDER PRODUCTION LINE COMBINATION NOTES: ACCUCHECK DONE. BS NOTED AT 149. PT. REFUSED HS INSULIN COVERAGE. OFFERED 3X. EXPLAINED RISK AND BENEFITS. PT. STILL REFUSED.
[2017-08-26] MEDS: BLOOD SUGAR DIAGNOSTIC 1 EACH STRIP IN SCH ×4 (07:55→21:55)
[2017-08-26 08:30] VITALS: BP 142/72
[2017-08-26] MEDS: LEVOTHYROXINE SODIUM 50 MCG TABLET PO SCH (08:35)
[2017-08-26] MEDS: LEVOTHYROXINE SODIUM 100 MCG TABLET PO SCH (08:35)
[2017-08-26] MEDS: PIOGLITAZONE HCL 15 MG TABLET PO SCH (08:36)
[2017-08-26] MEDS: LEVOTHYROXINE SODIUM 25 MCG TABLET PO SCH (08:36)
[2017-08-26] MEDS: BENZTROPINE MESYLATE (1 MG) 1 MG TABLET PO SCH ×3 (08:37→17:17)
[2017-08-26] MEDS: DIVALPROEX SODIUM 125 MG CAP.SPRINK PO SCH ×3 (08:37→17:17)
[2017-08-26] MEDS: CALCIUM CARB 600MG /VIT D 1 EACH TABLET PO SCH ×2 (08:37→17:17)
[2017-08-26] MEDS: MULTIVITAMINS,THERAGRAN 1 UDTAB TABLET PO SCH (08:38)
[2017-08-26] MEDS: CLOPIDOGREL BISULFATE 75 MG TABLET PO SCH (08:38)
[2017-08-26] MEDS: glipiZIDE 10 MG TABLET PO SCH ×2 (08:40→17:17)
[2017-08-26] MEDS: ATENOLOL 25 MG TABLET PO SCH (08:40)
[2017-08-26] MEDS: risperiDONE-M 0.5 MG TAB.RAPDIS PO SCH ×2 (10:37→20:37)
--- NOTE | 2017-08-26 15:39 | NUR ---
RN NOTE PER [facility], [facility] IS REQUESTING FOR A CHEST X-RAY FOR CLEARANCE PRIOR TO RE-ADMISSION TO FACILITY. DR. BYNUM MADE AWARE. ORDER NOTED AND CARRIED OUT.
--- NOTE | 2017-08-26 15:46 | NUR ---
Discharge Planning: LUMA received a call from James [inventory coordinator] from [facility] at [phone], who requested that a chest x-ray be conducted to clear patient from [facility]. LUMA put in the request with the nurse and will fax over the results to James on Tuesday.
[2017-08-26 16:18] VITALS: BP 132/67
[2017-08-26 20:00] VITALS: BP 143/74
--- NOTE | 2017-08-27 08:30 | NUR ---
GPS/RN ACCUCHECK WITH BS =54. ORANGE JUICE GIVEN. PT ATE BREAKFAST
[2017-08-27 08:32] VITALS: BP 130/69
[2017-08-27] MEDS: BLOOD SUGAR DIAGNOSTIC 1 EACH STRIP IN SCH ×4 (09:01→21:26)
[2017-08-27] MEDS: CLOPIDOGREL BISULFATE 75 MG TABLET PO SCH (12:34)
[2017-08-27] MEDS: CALCIUM CARB 600MG /VIT D 1 EACH TABLET PO SCH ×2 (12:34→16:43)
[2017-08-27] MEDS: BENZTROPINE MESYLATE (1 MG) 1 MG TABLET PO SCH ×3 (12:35→16:43)
[2017-08-27] MEDS: ATENOLOL 25 MG TABLET PO SCH (12:36)
[2017-08-27] MEDS: MULTIVITAMINS,THERAGRAN 1 UDTAB TABLET PO SCH (12:37)
[2017-08-27] MEDS: DIVALPROEX SODIUM 125 MG CAP.SPRINK PO SCH ×3 (12:40→16:43)
[2017-08-27] MEDS: PIOGLITAZONE HCL 15 MG TABLET PO SCH (12:40)
[2017-08-27] MEDS: risperiDONE-M 0.5 MG TAB.RAPDIS PO SCH ×2 (12:40→20:47)
[2017-08-27] MEDS: LEVOTHYROXINE SODIUM 100 MCG TABLET PO SCH (12:41)
[2017-08-27] MEDS: LEVOTHYROXINE SODIUM 25 MCG TABLET PO SCH (12:41)
[2017-08-27] MEDS: LEVOTHYROXINE SODIUM 50 MCG TABLET PO SCH (12:43)
[2017-08-27] MEDS: glipiZIDE 10 MG TABLET PO SCH ×2 (12:46→16:43)
--- NOTE | 2017-08-27 13:11 | NUR ---
GPS/RN PT WAS COMPLIANT WITH AM MEDICATIONS, GIVEN AT 0930
--- NOTE | 2017-08-27 17:50 | NUR ---
GPS/RN ACCUCHECK WITH BS=50. TWO CARTONS OF ORANGE JUICE WITH 5 PACKETS OF SUGAR GIVEN. NO S/S OF HYPOGLYCEMIA NOTED. PT REFUSED SECOND ACCUCHECK. NOTED TO EAT WELL HER DINNER.
[2017-08-27 20:00] VITALS: BP 114/60
[2017-08-27] MEDS: INSULIN REGULAR, HUMAN 100 UNIT/ML 3 ML VIAL SQ PRN (21:32)
[2017-08-28 08:00] VITALS: BP 138/60
[2017-08-28] MEDS: BLOOD SUGAR DIAGNOSTIC 1 EACH STRIP IN SCH ×4 (08:40→22:08)
[2017-08-28] MEDS: MULTIVITAMINS,THERAGRAN 1 UDTAB TABLET PO SCH (08:41)
[2017-08-28] MEDS: risperiDONE-M 0.5 MG TAB.RAPDIS PO SCH ×2 (08:41→21:18)
[2017-08-28] MEDS: BENZTROPINE MESYLATE (1 MG) 1 MG TABLET PO SCH ×3 (08:42→16:47)
[2017-08-28] MEDS: CALCIUM CARB 600MG /VIT D 1 EACH TABLET PO SCH ×2 (08:42→16:46)
[2017-08-28] MEDS: LEVOTHYROXINE SODIUM 100 MCG TABLET PO SCH (08:42)
[2017-08-28] MEDS: PIOGLITAZONE HCL 15 MG TABLET PO SCH (08:42)
[2017-08-28] MEDS: DIVALPROEX SODIUM 125 MG CAP.SPRINK PO SCH ×3 (08:42→16:46)
[2017-08-28] MEDS: CLOPIDOGREL BISULFATE 75 MG TABLET PO SCH (08:42)
[2017-08-28] MEDS: glipiZIDE 10 MG TABLET PO SCH ×2 (08:42→16:47)
[2017-08-28] MEDS: LEVOTHYROXINE SODIUM 50 MCG TABLET PO SCH (08:43)
[2017-08-28] MEDS: ATENOLOL 25 MG TABLET PO SCH (08:43)
[2017-08-28] MEDS: LEVOTHYROXINE SODIUM 25 MCG TABLET PO SCH (08:44)
--- NOTE | 2017-08-28 10:17 | NUR ---
GPS/RN DR BYNUM MADE AWARE OF LOW BLOOD SUGAR LEVELS. NEW ORDERS RECEIVED AND CARRIED OUT
[2017-08-28 15:51] VITALS: BP 104/52
--- NOTE | 2017-08-28 17:05 | NUR ---
GPS/RN ACCUCHECK WITH BS=64. ORANGE JUICE GIVEN.NO S/S OF HYPOGLYCEMIA NOTED
[2017-08-28 20:28] VITALS: BP 120/58
--- NOTE | 2017-08-28 21:26 | NUR ---
GPS/RN NOTES ACCU CHECK WITH BS=45. TWO CARTONS OF ORANGE JUICE WITH 5 PACKETS OF SUGAR GIVEN, AND 3 PACKETS OF GRAHAMS HONEY CRACKERS GIVEN .PT. ASKING ANOTHER JUICE AND PROVIDE JUICE, PT. A/O 3, AWAKE ALERT EATING SELF , PT. STATUS I DIDN'T EAT ENOUGH DINNER , I WAS NOT HUNGARY AT DINNER TIME , NO ACUTE DISTRESS NOTED NOTED, VITAL KESHIA STABLE , BP 115/ 62,P 80, R 18, TEMP 97.8 , O2 98% , CHARGE NURSE MADE AWARE , WILL RECHECK BLOOD SUGAR
--- NOTE | 2017-08-28 22:30 | NUR ---
GPS/RN NOTES PT REFUSED SECOND RECHECK ACCU CHECK. AT THIS TIME , ENCOURAGED FOR ACCU CHECK , PT. STILL REFUSED , EXPLAINED RISKS AND BENEFITS ,PT. STATUS I AM FINE RIGHT NOW BECAUSE OF EATING SNACKS , WILL CONTINUE TO ENCOURAGED TO COMPLY WITH ACCU CHECK
[2017-08-28 23:00] VITALS: BP 118/62
--- NOTE | 2017-08-29 00:10 | NUR ---
GPS RN NOTES RECHECK BLOOD SUGAR 140 AT THIS TIME , PT. ALERT NO ACUTE DISTRESS NOTED , PT STATUS I AM FINE .
[2017-08-29 08:26] VITALS: BP 128/52
[2017-08-29 09:00] VITALS: BP 128/52
[2017-08-29] MEDS: ATENOLOL 25 MG TABLET PO SCH (09:00)
--- NOTE | 2017-08-29 09:19 | NUR ---
Discharge Planning: LUMA faxed over x-ray image results and progress notes, as requested by James [cis coordinator] from [facility] at [phone]/ fax number [phone]. LUMA then called and spoke with James. LUMA asked James to schedule the ambulance for 2pm. James stated that he will do so. LUMA asked him to call with any further questions or concerns.
[2017-08-29] MEDS: CALCIUM CARB 600MG /VIT D 1 EACH TABLET PO SCH (09:21)
[2017-08-29] MEDS: MULTIVITAMINS,THERAGRAN 1 UDTAB TABLET PO SCH (09:21)
[2017-08-29] MEDS: DIVALPROEX SODIUM 125 MG CAP.SPRINK PO SCH ×2 (09:21→13:11)
[2017-08-29] MEDS: BENZTROPINE MESYLATE (1 MG) 1 MG TABLET PO SCH ×2 (09:21→13:11)
[2017-08-29] MEDS: PIOGLITAZONE HCL 15 MG TABLET PO SCH (09:22)
[2017-08-29] MEDS: LEVOTHYROXINE SODIUM 25 MCG TABLET PO SCH (09:22)
[2017-08-29] MEDS: LEVOTHYROXINE SODIUM 100 MCG TABLET PO SCH (09:23)
[2017-08-29] MEDS: LEVOTHYROXINE SODIUM 50 MCG TABLET PO SCH (09:23)
[2017-08-29] MEDS: DOCUSATE SODIUM 100 MG CAPSULE PO PRN (09:23)
[2017-08-29] MEDS: CLOPIDOGREL BISULFATE 75 MG TABLET PO SCH (09:24)
[2017-08-29] MEDS: risperiDONE-M 0.5 MG TAB.RAPDIS PO SCH (09:24)
[2017-08-29] MEDS: glipiZIDE 10 MG TABLET PO SCH (09:25)
[2017-08-29] MEDS: BLOOD SUGAR DIAGNOSTIC 1 EACH STRIP IN SCH ×2 (09:28→12:37)
--- NOTE | 2017-08-29 09:54 | NUR ---
Discharge Note : Patient will be discharged to board and care [facility] [address] [facility] [address] / [phone] via ambulance arranged by [facility] via [facility]. The ambulance is scheduled for 2pm. Patients daughter, Lilliana Pollack [phone], has been notified and is in agreement with the discharge plan. Patient will be seen by her psychiatrist, Dr. Jauregui [address] [address], [place] [address] [phone] on Tuesday, September 05 at 3pm. Patient will also be seen by a medical doctor at [facility] [address] [place] [address], on August 31 at 10:30am. Patient is not a smoker and does not abuse substances or alcohol.
--- NOTE | 2017-08-29 14:45 | NUR ---
PATIENT CLEARED FOR DISCHARGE TO [facility] BY DR AREVALO (COVERING FOR DR ESQUIVEL) AND DR BYNUM. PRESCRIPTIONS, AFTERCARE PLAN AND D/C PACKET EXPLAINED TO PATIENT. SHE IS CONFUSED BUT VERBALIZED UNDERSTANDING. PRESCRIPTIONS FAXED TO FACILITY AND HOME HEALTH WAS ORDERED BY DR BYNUM. PATIENT REFUSED TO SIGN D/C PAPERWORK AND BELONGING SHEET, COSIGNED BY 2 RN. D/C PHOTOS IN CHART, TAKEN BY PREVIOUS SHIFT. PATIENT DENIES SI/HI/AH UPON DISCHARGE, PSYCHIATRIC TREATMENT PLANS MET, NO AGITATION OR AGGRESSIVE BEHAVIOR NOTED AT THIS TIME. LEFT UNIT CALM, COOPERATIVE WITH AMBULANCE TRANSPORT AT SIDE.
== END 2017-08-29 14:25 | disposition home or self-care (01) | DRG 885 ==
LOC: ER 17:55 → GPS 19:31
PROVIDERS: ADMIT Psychiatry & Neurology Psychosomatic Medicine; ATTEND Internal Medicine
DX: F25.0 Schizoaffective disorder, bipolar type (principal); F02.80 Dementia in other diseases classified elsewhere, unspecified severity, without behavioral disturbance, psychotic disturbance, mood disturbance, and anxiety; N18.9 Chronic kidney disease, unspecified; N17.0 Acute kidney failure with tubular necrosis; N39.0 Urinary tract infection, site not specified; G30.9 Alzheimer's disease, unspecified; F29 Unspecified psychosis not due to a substance or known physiological condition; E03.9 Hypothyroidism, unspecified; E78.5 Hyperlipidemia, unspecified; I25.10 Atherosclerotic heart disease of native coronary artery without angina pectoris; I12.9 Hypertensive chronic kidney disease with stage 1 through stage 4 chronic kidney disease, or unspecified chronic kidney disease; F41.9 Anxiety disorder, unspecified; E11.22 Type 2 diabetes mellitus with diabetic chronic kidney disease; Z73.6 Limitation of activities due to disability; M19.90 Unspecified osteoarthritis, unspecified site; Z91.81 History of falling
CPT/HCPCS: 36415; 70450-TC; 71010-TC; 73502; 80048-TC; 80053-TC; 80061-TC; 80076-TC; 80164-TC; 80305; 81000-TC; 82565-TC; 82962-TC; 84443-TC; 85025-TC; 87081-TC; 87086-TC; 97116-TC; 97530-TC; A4606; G0480; J0696; J1815; J3490; J7030; Z7610